=== PATIENT | male | born 1970 | race Caucasian/White ===

== ENCOUNTER 2017-05-26 17:39 | Inpatient (IN) | payer MEDICAID ==
[~2017-05-26] VITALS: Ht 172.7 cm; Wt 81.3 kg
[2017-05-26 17:52] VITALS: BP 121/75
--- NOTE | 2017-05-26 18:27 | NUR ---
Patient ambulated to bed 04.
--- NOTE | 2017-05-26 18:36 | NUR ---
46 YO MALE BIB SELF FOR HEMATURIA SINCE LAST NIGHT. DENIES N/V/D; SKIN IS PINK/WARM/DRY; AAOX4 WITH EVEN AND STEADY GAIT; LUNGS CLEAR BL; HR EVEN AND REGULAR; PT DENIES ANY FEVER, CP, SOB, OR COUGH AT THIS TIME; PATIENT STATES PAIN OF 2/10 AT THIS TIME; VSS; PATIENT POSITIONED FOR COMFORT; HOB ELEVATED; BEDRAILS UP X2; BED DOWN. ER MD MADE AWARE OF PT STATUS.
--- NOTE | 2017-05-26 19:00 | NUR ---
RECEIVED REPORT FROM TRISTON VICTOR, TRANSFER OF CARE AT THIS TIME.
[2017-05-26 19:19] LABS: APPEARANCE,URINE BLOODY (CLEAR); BILIRUBIN,URINE NEGATIVE (NEGATIVE); BLOOD, URINE 3+ (NEGATIVE); COLOR,URINE RED (YELLOW); LEUKOCYTE ESTERASE ,URINE NEGATIVE (NEGATIVE); NITRITE, URINE NEGATIVE (NEGATIVE); PH,URINE 7.5 (5.0-9.0); RBC,URINE TOO NUMEROUS TO COUN /HPF (0-5); UGLUCOSE NEGATIVE (NEGATIVE); WBC,URINE 0-5 (RARE) /HPF (0-5)
[2017-05-26] MEDS ORDERED: NACL 0.9% 1,000 ML IV ONE (20:20)
--- NOTE | 2017-05-26 20:55 | NUR ---
PATIENT RESTING AT THIS TIME.
[2017-05-26] MEDS ORDERED: ONDANSETRON 4 MG/2 ML VIAL IVP PRN (21:00)
[2017-05-26] MEDS ORDERED: ACETAMINOPHEN 325 MG TAB PO PRN (21:00)
[2017-05-26] MEDS ORDERED: HYDROcodone/APAP 7.5/325 MG 1 TAB PO PRN (21:00)
--- NOTE | 2017-05-26 21:00 | NUR ---
Antoine gallo in ED - 05/27/17 at 0121 by MEDDCV PATIENT RESTING AT THIS TIME. SON AT BEDSIDE.
[2017-05-26 21:03] LABS: ANION GAP 12.8 (8-16); CARBON DIOXIDE 26.3 mmol/L (21-32); CREATININE 1.1 mg/dL (0.7-1.3); POTASSIUM 4.1 mmol/L (3.5-5.1)
[2017-05-26 21:09] LABS: ALBUMIN 3.3 g/dL (3.4-5.0); PROTHROMBIN TIME 10.2 secs (10.8-13.4); TOTAL BILIRUBIN 0.5 mg/dL (0.0-1.0)
[2017-05-26 21:20] LABS: EOSINOPHILS # (AUTO) 0.2 K/uL (0-0.4); EOSINOPHILS % (AUTO) 2.9 % (0.0-4.0); HEMOGLOBIN 13.6 g/dL (12.0-18.0); MONOCYTES # (AUTO) 0.5 K/uL (0.8-1.0); NEUTROPHILS # (AUTO) 3.2 K/uL (1.8-7.7)
[2017-05-26 21:24] LABS: BASOPHILS # (AUTO) 0.3 K/uL (0.00-0.22); BASOPHILS % (AUTO) 4.3 % (0.0-2.0); HEMATOCRIT 41.5 % (36-52); LYMPHOCYTES # (AUTO) 2.6 K/uL (2.0-11.5); LYMPHOCYTES % (AUTO) 38.6 % (20.5-51.1); MEAN CORPUSCULAR HEMOGLOBIN 29 pg (27-31); MEAN CORPUSCULAR HGB CONC 33 g/dL (33-37); MEAN CORPUSCULAR VOLUME 89 fL (80-94); MONOCYTES % (AUTO) 6.7 % (1.7-9.3); NEUTROPHILS % (AUTO) 47.5 % (42.2-75.2); PLATELET COUNT (AUTO) 139 K/uL (140-450); RED BLOOD CELL COUNT(AUTO) 4.65 MIL/uL (4.20-6.10); WHITE BLOOD COUNT (AUTO) 6.9 K/uL (4.8-10.8)
--- NOTE | 2017-05-26 21:45 | NUR ---
Patient will be admitted to care of DR. DAMON. Admited to TELE. Will go to room 119B. Belongings list completed. Report to DEANN VICTOR.
[2017-05-26 22:02] VITALS: BP 126/78
[2017-05-26 22:10] LABS: CHOL/HDL RATIO 6.7 (1-4.5); FREE T4 (FREE THYROXINE) 0.75 ng/dL (0.76-1.46); MAGNESIUM 1.9 mg/dL (1.8-2.4); PHOSPHORUS 3.6 mg/dL (2.5-4.9); THYROID STIMULATING HORMONE 1.59 uIU/mL (0.34-3.74)
[2017-05-26] MEDS: NACL 0.9% 1,000 ML IV SCH (22:11)
[2017-05-26] MEDS: DOCUSATE SODIUM 100 MG GELCAP PO SCH (22:15)
--- NOTE | 2017-05-26 22:45 | NUR ---
ADMITTED PATIENT TO THE TELE UNIT. PATIENT AWAKE ALERT ORIENTED X4, NO S/S OF DISTRESS NOTED, RESPIRATION EVEN AND UNLABORED, DENIES PAIN AT THIS TIME. TELE MONITOR PLACED ON PATIENT, AND NOTED BASILIO CATHETER IN PLACE, DRAINING URINE BY GRAVITY. ORIENTED PATIENT TO THE ROOM AND PLAN OF CARE DISCUSSED, PATIENT VERBALIZED UNDERSTANDING. CALL LIGHT WITHIN REACH, SAFETY MEASURE ENSURED, WILL CONTINUE TO MONITOR.
[2017-05-26] MEDS ORDERED: TAMSULOSIN 0.4 MG CAP PO SCH (23:35)
[2017-05-26] MEDS: ATORVASTATIN 20 MG TAB PO SCH (23:40)
--- NOTE | 2017-05-27 00:22 | NUR ---
LIPITOR NOT ADMINISTERED, DR. SANDOVAL IS AWARE, SHE SAID," START LIPITOR TOMORROW."
[2017-05-27 01:19] LABS: BARBITURATE, URINE NEGATIVE ng/ml (NEG <=200); BENZODIAZEPINE, URINE NEGATIVE ng/mL (NEG <=200); CANNABINOID, URINE NEGATIVE ng/mL (NEG <=50); COCAINE, URINE NEGATIVE ng/mL (NEG <=300); OPIATE, URINE NEGATIVE ng/mL (NEG <=2000); PHENCYCLIDINE SCREEN,URINE NEGATIVE ng/mL (NEG <=25)
[2017-05-27] MEDS: NACL 0.9% 1,000 ML IV SCH ×2 (02:55→12:10)
[2017-05-27 04:00] VITALS: BP 132/74
--- NOTE | 2017-05-27 04:05 | NUR ---
NO CHANGE IN CONDITION, PATIENT WAS SLEEPING, EASY TO AROUSE, NO S/S OF DISTRESS NOTED, RESPIRATION EVEN AND UNLABORED. CALL LIGHT WITHIN REACH, SAFETY MEASURE ENSURED, WILL CONTINUE TO MONITOR.
[2017-05-27 06:30] LABS: BASOPHILS # (AUTO) 0.1 K/uL (0.00-0.22); EOSINOPHILS # (AUTO) 0.2 K/uL (0-0.4); EOSINOPHILS % (AUTO) 2.4 % (0.0-4.0); HEMATOCRIT 39.1 % (36-52); HEMOGLOBIN 13.2 g/dL (12.0-18.0); LYMPHOCYTES # (AUTO) 2.1 K/uL (2.0-11.5); LYMPHOCYTES % (AUTO) 27.9 % (20.5-51.1); MEAN CORPUSCULAR HEMOGLOBIN 30 pg (27-31); MEAN CORPUSCULAR HGB CONC 34 g/dL (33-37); MEAN CORPUSCULAR VOLUME 89 fL (80-94); MONOCYTES # (AUTO) 0.5 K/uL (0.8-1.0); MONOCYTES % (AUTO) 6.7 % (1.7-9.3); NEUTROPHILS # (AUTO) 4.6 K/uL (1.8-7.7); PLATELET COUNT (AUTO) 129 K/uL (140-450); RED CELL DISTRIBUTION WIDTH 13.5 % (11.6-13.7); WHITE BLOOD COUNT (AUTO) 7.5 K/uL (4.8-10.8)
--- NOTE | 2017-05-27 06:39 | NUR ---
PATIENT WAS SLEEPING, EASY TO AROUSE, NO S/S OF DISTRESS NOTED, RESPIRATION EVEN AND UNLABORED, CALL LIGHT WITHIN REACH, SAFETY MEASURE ENSURED, WILL CONTINUE TO MONITOR.
[2017-05-27 06:57] LABS: ANION GAP 11.5 (8-16); CARBON DIOXIDE 25.4 mmol/L (21-32); CREATININE 0.9 mg/dL (0.7-1.3); POTASSIUM 3.9 mmol/L (3.5-5.1)
[2017-05-27 07:00] LABS: MAGNESIUM 1.9 mg/dL (1.8-2.4); PHOSPHORUS 3.1 mg/dL (2.5-4.9)
--- NOTE | 2017-05-27 07:12 | NUR ---
ASSUMED CONTINUITY OF CARE. NO SIGNS AND SYMPTOMS OF ACUTE DISTRESS NOTED. INITIAL ASSESSMENT DONE. EXPLAINED DIAGNOSIS, PLAN OF CARE, PAIN MANAGEMENT TEACHING, USE OF CALL LIGHT/BED/TV/BATHROOM. VERBALIZED UNDERSTANDING. CALL LIGHT WITHIN REACH.
--- NOTE | 2017-05-27 07:12 | NUR ---
ENDORSED PLAN OF CARE TO DAY KAYLEIGH SHERIDAN, PATIENT RESTING IN BED, IN STABLE CONDITION. Addendum: 05/27/17 at 0713 by Garrison Angulo RN [facility]
[2017-05-27 08:00] VITALS: BP 112/64
--- NOTE | 2017-05-27 08:00 | NUR ---
Patient's Plan of Care was discussed and reviewed with CARDIOLOGY MANAGER: ARVIN MARTINEZ
--- NOTE | 2017-05-27 08:30 | NUR ---
PATIENT HAS BEEN SCREENED AND CATEGORIZED LOW NUTRITION RISK. PATIENT WILL BE SEEN WITHIN 7 DAYS OF ADMISSION. 06/02/[address]
[2017-05-27] MEDS ORDERED: TAMSULOSIN 0.4 MG CAP PO SCH (08:44)
[2017-05-27] MEDS: ATORVASTATIN 20 MG TAB PO SCH (08:54)
[2017-05-27] MEDS ORDERED: PANTOPRAZOLE 40 MG INJ VIAL IVP SCH (09:00)
[2017-05-27] MEDS: DOCUSATE SODIUM 100 MG GELCAP PO SCH (09:09)
--- NOTE | 2017-05-27 10:15 | NUR ---
EXPLAINED ABOUT MD ORDER TO D/C BASILIO CATH. PT. VERBALIZED UNDERSTANDING. D/C BASILIO CATHETER PER MD ORDER. TOLERATED WELL. NO C/O PAIN. GOT 850 ML. CLEAR YELLOW URINE OUTPUT FROM BASILIO CATH.
[2017-05-27 12:00] VITALS: BP 108/57
--- NOTE | 2017-05-27 13:15 | NUR ---
CM NOTE PER [employer] HELPER NICK FAX REVIEWS TO [place] [employer] [phone] PH# [phone]. INITIAL REVIEW FAXED TO [place] [employer] [phone] PH# [phone].
[2017-05-27] MEDS ORDERED: INFLUENZA VIRUS VACCINE QUAD 0.5 ML SYR IMVAC SCH (13:50)
--- NOTE | 2017-05-27 13:50 | NUR ---
EXPLAINED ABOUT MD D/C ORDER, D/C INSTRUCTIONS AND TEACHING, PCP FOLLOW-UP IN 5 BUSINESS DAYS, PAIN MANAGEMENT TEACHING, DIAGNOSIS, FLU VACCINE ADMINISTRATION. VERBALIZED UNDERSTANDING.
--- NOTE | 2017-05-27 14:25 | NUR ---
D/C VIA WHEELCHAIR WITH ASSISTANCE FROM MYRA FRANCO. AWAKE, ALERT, AND ORIENTED X4. SPEECH CLEAR. NO C.O PAIN. NO SOB, NOTED. NO C/O BLOOD IN URINE. IN STABLE CONDITION. INFORMED CHARGE NURSE SERGIO MAYER.
[2017-05-28] MEDS ORDERED: TAMSULOSIN 0.4 MG CAP PO SCH (08:30)
== END 2017-05-27 14:25 | disposition home or self-care (01) | DRG 465 ==
LOC: MED 17:39 → MTU 21:04
PROVIDERS: ADMIT Family Medicine; ATTEND Family Medicine
PROC: 3E0234Z Introduction of Serum, Toxoid and Vaccine into Muscle, Percutaneous Approach (ICD-10-PCS; principal; 2017-05-27)
DX: N20.0 Calculus of kidney (principal); N17.0 Acute kidney failure with tubular necrosis; E44.1 Mild protein-calorie malnutrition; E78.5 Hyperlipidemia, unspecified; E02 Subclinical iodine-deficiency hypothyroidism; R80.9 Proteinuria, unspecified; Z96.652 Presence of left artificial knee joint; Z72.89 Other problems related to lifestyle; Z87.891 Personal history of nicotine dependence; Z23 Encounter for immunization; Z87.828 Personal history of other (healed) physical injury and trauma; Z83.3 Family history of diabetes mellitus; Z82.61 Family history of arthritis; Z84.1 Family history of disorders of kidney and ureter; Z82.3 Family history of stroke; Z80.51 Family history of malignant neoplasm of kidney; Z68.27 Body mass index [BMI] 27.0-27.9, adult
CPT/HCPCS: 36415; 71010; 80048; 80053; 80305; 81001; 82140; 82150; 82607; 82728; 82746; 83036; 83540; 83605; 83690; 83735; 83880; 84100; 84439; 84443; 84484; 85025; 85045; 85610; 85730; 87040; 87081; 90658; 93005; 96360; 99285; J7030; Q0092